=== PATIENT | male | born 1990 | race Caucasian/White ===

== ENCOUNTER 2019-03-16 13:04 | Emergency (ER) | payer MEDICAID, OTHER ==
[~2019-03-16] VITALS: Ht 177.8 cm; Wt 85.0 kg
[2019-03-16] MEDS ORDERED: TETanus/Pertussis (Acell)/Diphther VAC/PF (Tdap-Adult) 0.5ml syringe IMVAC ONE (13:35)
[2019-03-16] MEDS ORDERED: ketorolac trometh inj. 60 MG/2 ML VIAL IM ONE (13:35)
--- NOTE | 2019-03-16 15:50 | NUR ---
cleaned sutured wound to face with normal saline, dressed with bandaid, pt qasim well
[2019-03-16 15:51] VITALS: BP 122/46
== END 2019-03-16 15:52 | disposition home or self-care (01) ==
LOC: ER 13:06
DX: S01.81XA Laceration without foreign body of other part of head, initial encounter (principal); F17.200 Nicotine dependence, unspecified, uncomplicated; F12.90 Cannabis use, unspecified, uncomplicated; F17.210 Nicotine dependence, cigarettes, uncomplicated; Z56.0 Unemployment, unspecified; Y08.89XA Assault by other specified means, initial encounter; Y93.89 Activity, other specified; Y92.89 Other specified places as the place of occurrence of the external cause; Y99.8 Other external cause status
CPT/HCPCS: 12011; 90471; 90715; 96372; 99283; J1885; 12001

== ENCOUNTER 2019-03-22 10:00 | Emergency (ER) | payer MEDICAID ==
[~2019-03-22] VITALS: Ht 177.8 cm; Wt 75.0 kg
[2019-03-22 10:18] VITALS: BP 138/82
== END 2019-03-22 11:14 | disposition home or self-care (01) ==
LOC: ER 10:01
DX: S01.81XD Laceration without foreign body of other part of head, subsequent encounter (principal); F12.90 Cannabis use, unspecified, uncomplicated; F19.90 Other psychoactive substance use, unspecified, uncomplicated; Z56.0 Unemployment, unspecified; Y08.89XD Assault by other specified means, subsequent encounter
CPT/HCPCS: 99281

== ENCOUNTER 2019-07-06 19:27 | Emergency (ER) | payer MEDICAID ==
[~2019-07-06] VITALS: Ht 177.8 cm; Wt 78.0 kg
[2019-07-06 21:10] VITALS: BP 149/92
== END 2019-07-06 21:01 | disposition home or self-care (01) ==
LOC: ER 19:28
DX: R51 Headache (principal); F12.90 Cannabis use, unspecified, uncomplicated; Z56.0 Unemployment, unspecified; Z00.00 Encounter for general adult medical examination without abnormal findings
CPT/HCPCS: 99281